=== PATIENT | male | born 1945 | race Caucasian/White ===

== ENCOUNTER → 2021-02-04 08:00 | Outpatient (REF) | payer OTHER, SELFPAY ==
[2021-02-04 08:53] LABS: Hematocrit 46.4 % (40-54); Hemoglobin 14.9 g/dL (13.0-16.5); Mean Corp Hgb Conc 32.1 g/dL (32-36); Mean Corpuscular Hgb 30.7 pg (27.0-32.0); Mean Corpuscular Volume 95.7 fL (80-94); Mean Platelet Vol. 10.6 fl (6.2-12.0); Platelet Count 160 K/mm3 (150-450); RBC Distribution Width CV 13.2 % (11.6-14.6); RBC Distribution Width SD 46.6 fl (35.1-43.9); Red Blood Count 4.85 M/mm3 (4.6-6.2); White Blood Count 5.7 K/mm3 (4.4-11.0)
[2021-02-04 09:35] LABS: AST(SGOT) 22 U/L (15-37); Alanine Aminotransfer ALT/SGPT 29 U/L (16-61); Albumin, Serum 3.9 g/dL (3.2-5.0); Alkaline Phosphatase 75 U/L (45-117); Anion Gap 3 (5-15); BUN 36 mg/dL (7-18); BUN/Creat Ratio 42.9 RATIO (10-20); Calcium,Total 9.1 mg/dL (8.5-10.1); Chloride 105 mmol/L (98-107); Cholesterol 113 mg/dL (200); Creatinine, Serum 0.84 mg/dL (0.70-1.30); EST Glomerular Filtration Rate 95 mL/min (>60); Est Glom Filt Rate - Afr Amer 114 mL/min (>60); Glucose 95 mg/dL (74-106); High Density Lipoprotein 62 mg/dL; Protein, Total 7.9 g/dL (6.4-8.2); Sodium Level 140 mmol/L (136-145); Thyroid Stim Hormone (TSH) 0.88 uIU/mL (0.358-3.74); Triglycerides 46 mg/dL; Very Low Density Lipoprotein 9 mg/dL (5-40)
== END ==
LOC: OLS.DANBUR 08:00
PROVIDERS: Referring Provider Family Medicine; Visit Provider Family Medicine
DX: I48.91 Unspecified atrial fibrillation (principal); I10 Essential (primary) hypertension; E78.5 Hyperlipidemia, unspecified; Z86.73 Personal history of transient ischemic attack (TIA), and cerebral infarction without residual deficits
CPT/HCPCS: 36415; 80053; 80061; 84443; 85027

== ENCOUNTER 2022-11-03 07:27 | Day surgery (SDC) | payer MEDICARE, SELFPAY ==
[2022-11-02 12:20] LABS: Hematocrit 38.4 % (40-54); Hemoglobin 12.3 g/dL (13.0-16.5); Mean Corpuscular Hgb 31.1 pg (27.0-32.0); Mean Platelet Vol. 11.4 fl (6.2-12.0); Platelet Count 136 K/mm3 (150-450); RBC Distribution Width CV 13.3 % (11.6-14.6); Red Blood Count 3.96 M/mm3 (4.6-6.2); White Blood Count 5.1 K/mm3 (4.4-11.0)
[2022-11-02 13:17] LABS: Anion Gap 9 (5-15); BUN 26 mg/dL (7-18); Calcium,Total 9.3 mg/dL (8.5-10.1); Chloride 107 mmol/L (98-107); Creatinine, Serum 0.84 mg/dL (0.70-1.30); EST Glomerular Filtration Rate 94 mL/min (>60); Est Glom Filt Rate - Afr Amer 114 mL/min (>60); Estimated Creatinine Clearance 77.96 ml/min; Glucose 89 mg/dL (74-106); Potassium 3.8 mmol/L (3.5-5.1); Sodium Level 141 mmol/L (136-145)
[2022-11-03] VITALS (13 sets, daily range): BP systolic 129–172; BP diastolic 71–119; PULSE 53–76; RESP 16–18; TEMP 36.2–36.4; O2SAT 92–97; BMI 23.1
[2022-11-03] MEDS: Lactated Ringers 1,000 ML 15 ML IV ×2 (07:45→10:30)
--- NOTE | 2022-11-03 08:34 | EKG12_ITS ---
Test Reason : PRE OP Blood Pressure : / mmHG Vent. Rate : 066 BPM Atrial Rate : 072 BPM P-R Int : 000 ms QRS Dur : 100 ms QT Int : 446 ms P-R-T Axes : 000 118 -55 degrees QTc Int : 467 ms Atrial fibrillation Left posterior fascicular block T wave abnormality, consider inferior ischemia Prolonged QT Abnormal ECG When compared with ECG of 02-NOV-2022 10:56, No significant change was found Confirmed by MARVIN HILL, LIZETTE ([id number]), medical editor FRANCISCO LOPEZ ([id number]) on 11/09/2022 10:53:05 AM Referred By: Dima Altamirano Confirmed By:LIZETTE WONG MD
[2022-11-03] MEDS: Cefazolin 2 GM in 0.9% Normal Saline 100 ML IV (09:23)
--- NOTE | 2022-11-03 09:26 | PCM.HP.BLA ---
History and Physical Date of Admission: 11/03/22 Visit Reasons:?R inguinal hernia Chief Complaint: [place] Director Required: No Is patient in pain?: No Allergies No Known Allergies Allergy (Verified 10/25/22 09:51) Medications apixaban 5 mg tablet (Eliquis) 5 mg PO BID 10/25/22 [History Confirmed 10/25/22] finasteride 5 mg tablet 5 mg PO 10/25/22 [History Confirmed 10/25/22] glycopyrrolate 1 mg tablet 1 mg PO TID 10/25/22 [History Confirmed 10/25/22] lisinopril 2.5 mg tablet 2.5 mg PO 10/25/22 [History Confirmed 10/25/22] metoprolol succinate 50 mg tablet,extended release 24 hr 50 mg PO 10/25/22 [History Confirmed 10/25/22] mirtazapine 15 mg tablet 15 mg PO 10/25/22 [History Confirmed 10/25/22] rosuvastatin 5 mg tablet 5 mg PO 10/25/22 [History Confirmed 10/25/22] trazodone 100 mg tablet 100 mg PO 10/25/22 [History Confirmed 10/25/22] PFSH Medical History?(Updated 10/25/22 @ 12:[address] Dima Altamirano MD) Aortic aneurysm Aphasia CAD (coronary artery disease) CVA (cerebral vascular accident) HTN (hypertension) Weakness Surgical History?(Updated 10/25/22 @ 09:46 by Arcelia Johnson) H/O heart bypass surgery S/P adenoidectomy S/P laparoscopic cholecystectomy S/P tonsillectomy Status post right knee replacement Family History?(Updated 10/25/22 @ 09:48 by Arcelia Johnson) Sister Breast cancerMother CVA (cerebral vascular accident) HypertensionFather Diabetes Heart disease CVA (cerebral vascular accident) Social History?(Updated 10/25/22 @ 09:50 by Arcelia Johnson) Smoking Status:? Former smoker alcohol intake:? current Alcohol type: beer details:? 1/2 beer daily HPI HPI HPI: 77-year-old gentleman who for the past 2 years has been at [facility].? He claims that just within the past very short period of time he noticed a softball sized lump in the right groin.? There is some concerns that it may be affecting his bowel movements.? He has had 2 previous strokes.? Although his mentation appears to be clear he certainly is affected.? He has trouble clearing his airway.? He does need significant amount of assistance.? He is aware of his situation and place.? He is accompanied by the [facility] today.? He has not had any previous right groin surgery.? He has had 2 previous strokes.? He has had coronary bypass surgery.? He is has chronic atrial fibrillation.? He is on chronic Eliquis therapy.? His resides at the same unit but has Alzheimer's and this is far advanced. The patient had a previous laparoscopic cholecystectomy.? He has not any previous groin surgery.? He does have nocturia. He thinks that excessive phlegm production which causes him to cough has accelerated this right inguinal hernia.? Unfortunately he has significant amount of phlegm and sputum and because of a stroke does find it difficult to clear ROS General General: No weight change, appetite, fatigue, colon cancer, breast cancer or weakness HEENT HEENT: Yes difficulty swallowing; No eye injury, eye surgery, swollen glands or hoarseness Endo Endocrine: No thyroid disease, diabetes mellitus, thyroid cancer, Hair loss, heat intolerance or cold intolerance Skin Skin: No rash or changing moles Breast Breast: No left breast lump, right breast lump, nipple discharge, breast pain, abnormal mammogram, abnormal US or breast enlargement Musc Musculoskeletal: Yes arthritis; No back problems, rheumatoid arthritis, gout or joint pain Cardio Cardiovascular: Yes murmur, heart disease, atrial fibrillation, high blood pressure and heart attack; No pacemaker, heart stent, palpitations, shortness of breat with exertion or chest pain Psych Psychiatric: No depression, anxiety or hearing voices Resp Respiratory: No shortness of breath, No sleep apnea, No cough, No COPD, No asthma, No emphysema and No wheezing Gastro Gastrointestinal: No abdominal pain, No nausea or vomiting, No diarrhea, No constipation, No blood in stool, Yes acid reflux, Yes hemorrhoids, No ulcers, No gallbladder problem and No black,tarry stools Bakari Hematologic: Yes blood thinners, No blood disorders, No bleeding, No anemia and No blood clots Neuro Neurologic: No system reviewed and no additional complaints, except as documented, No as per HPI, No abnormal gait, No abnormal hearing, No abnormal movements, No abnormal speech, No behavioral changes, No burning sensations, No confusion, No convulsions, No disequilibrium, No dizziness, No localized weakness, No frequent falls, No headache(s), No lack of coordination, No loss of vision, No memory loss, No numbness, No other visual disturbances, No radicular pain, No restless legs, No sensory deficit, No syncope, No tingling, No tremor(s), No weakness and No other Exam Const General: cooperative Other: He appears to be aware of his situation and place.? He clearly has muscular deficit from his previous stroke. Eyes General: appearance normal, both eyes and all related structures Neck Other: Slender stiffly held Chest Chest palpation & inspection: normal inspection of the chest Resp Effort & Inspection: normal respiratory effort Auscultation: clear to auscultation bilaterally Cardio Other: Irregular GI Inspection: normal to inspection Palpation: soft and no hepatosplenomegaly Other: Patient has an obvious right inguinal hernia.? Testicles are descended.? With some effort I am able to reduce the right inguinal hernia clearly there is bowel involvement.? Upon reduction he is now less tender. Musc Cervical Spine: normal cervical lordosis Skin General: no rashes or lesions noted Neuro General: patient awake and patient oriented x3 Extrem General: no calf tenderness Psych Appearance: grossly normal Assessment and Plan Assessment and Plan (1) Inguinal hernia of right side without obstruction or gangrene: ?Status:?Acute ?Plan: 77-year-old gentleman who is clearly quite complicated. He has respiratory issues not being able to completely clear his phlegm.? He has to use suction.? I recommend contacting Dr. Davion Layton to see if anything additional with suctioning or humidification there are mucolytic's could be done to improve the patient's respiratory status as he clearly is at current ongoing risk for bilateral pulmonary atelectasis and aspiration and periprocedural pneumonia.? I believe that this is the most pressing and concerning issue at this time. I am concerned about the patient's right inguinal hernia there is significant bowel involvement he himself unfortunately has difficult sensing this and certainly could not be relied upon to consistently reduce this area.? I propose for him a open right inguinal herniorrhaphy done under monitored anesthesia care.? I anticipate a Jamil approach with mesh.? Clearly however that even this would come with increased risk. The patient is on chronic Eliquis therapy for atrial fibrillation.? That would need to be held at least 48 hours a preoperatively. He is at increased risk for perioperative urinary obstruction. He will additionally likely require a more enhanced level of postoperative management and care.? Effort needs to be placed into social service and placement as to whether 24/7 nursing care can be provided at his current facility or a additional intermediate type facility would need to be identified. I have great concerns however that due to the patient's disability and deficits that he may not recognize incarceration of this hernia and he would not do well if he presented incarcerated or obstructed as that likely would require general anesthesia further complicating his treatment. He has had an opportunity to ask and have questions answered.? He is interested in pursuing the right inguinal herniorrhaphy if his pulmonary status can be improved and stabilized and if an appropriate place for postoperative care can be arranged. Time spent in direct care managing the patient and organization of planned perioperative management 1 hour. Copy: Dr. Davion Altamirano M.D., F.A.C.S. I have examined the patient and the H&P has been reviewed. There are no clinical changes since date of exam. Dima Altamirano M.D., F.A.C.S.
--- NOTE | 2022-11-03 09:27 | DCINST_ITS ---
Discharge Instructions Procedure General Surgery Diet Discharge Diet: Light diet - advance as tolerated (if you have questions about your diet instructions, please talk to you doctor.) Activity Discharge Activity: May Not Drive (for 3-5 days or while taking narcotic pain medicine.) May shower in (days): 1 Lifting Restrictions: 10 pounds Dressing / Incision Call your doctor if your incision/area has: Continuous Slow Oozing, Sudden Increased Bleeding, Increased Pain/ Swelling, Increased Redness and Foul Smelling Discharge Call your doctor if you observe: Fever of 101 or Higher Suture Line Care: Avoid Pulling/Pushing and Avoid Pinching/Bending Additional Dressing/Incision Instructions:: Change or remove dressing in 4 days. Leave steri-strips in place for 1 week. Metamucil or similar agent 1 tbls daily with fluid or 1 capful miralax daily starting today to avoid constipation May resume Eliquis on Sunday, November 05, 2022 Follow Up Care Please Follow Up With: Dima Altamirano MD When: Call [phone] to make an appointment to be seen in about 10 days. Test Results: Test results from this visit will be discussed in further detail at your follow- up appointment, if applicable. Discharge Plan Admission Primary Reason for Your Visit: Right inguinal hernia Attending Provider: Dima Altamirano Primary Care Provider: Davion Layton Discharge Orders/Prescriptions Prescriptions: Continued finasteride 5 mg tablet 5 mg PO QHS rosuvastatin 5 mg tablet 5 mg PO QHS lisinopril 2.5 mg tablet 2.5 mg PO DAILY mirtazapine [Remeron] 15 mg tablet 15 mg PO QHS Eliquis 5 mg tablet 5 mg PO BID trazodone 100 mg tablet 100 mg PO QHS metoprolol succinate 50 mg tablet extended release 24 hr 50 mg PO DAILY glycopyrrolate 1 mg tablet 1 mg PO TID Referrals / Follow Up: Davion Layton MD [Primary Care Provider] - Disposition Disposition (needs filled in before D/C Order can be placed): Home, Self Care
--- NOTE | 2022-11-03 09:30 | HERN_PTH ---
PATIENT: DIEGO RAMIREZ [place] [facility] [id number] AGE/SX: 77/M ROOM: RE11/03/[address]: Dr. Dima Altamirano MD : 1945 BED: DIS: 11/03/2022 SPEC #: [id number] RECD: 11/03/22 13:40 STATUS: ARABELLA RITESH #: [id number] BRIDGET: 11/03/22 09:[address]: Dima Altamirano DEPT: SURGICAL PATHOLOGY RECD BY: Ayad Estrada ENTERED: 11/03/22 14:05 SP TYPE: Hernia OTHR DR: Dr. Davion Layton MD Tissues: HERNIA Procedures: Surgery Specimen Level II HEADER OPERATION: Inguinal hernia with mesh PRE-OP DIAGNOSIS: Inguinal hernia of right side TISSUE SUBMITTED: Cord lipoma and cremasteric fibers MICROSCOPIC DIAGNOSIS Cord lipoma and cremasteric fibers, excisions: Mature fibrofatty and fibrovascular tissue consistent with lipoma. AM:david 11/06/2022 MICROSCOPIC DESCRIPTION Slides are reviewed. GROSS DESCRIPTION Received in fixative is one container labeled with the patient's name and designated cord lipoma and cremasteric fibers. The specimen consists of three irregular fragments of pink-yellow soft tissue ranging in size from 1 to 5 cm. Serial sections reveal homogenous yellow cut surfaces. The two smaller fragments are submitted in their entirety in cassette 1. [employer] section of the largest fragment is submitted in cassette 2. / AM:david 11/03/2022 TC:1 CPT: 01506
--- NOTE | 2022-11-03 10:44 | OP.PCM_ITS ---
Report of Operation Date of Procedure: 11/03/22 Pre-Operative Diagnosis: Symptomatic right inguinal hernia Post-Operative Diagnosis: Symptomatic indirect right inguinal hernia Surgery/Procedure Performed:: Jamil right inguinal herniorrhaphy Bard mesh preshaped keyhole lot number [id number], reference [id number], expiry date 04/04/2027 Description of Surgical Findings:: Timeout and informed consent was obtained. 77-year-old gentleman was taken to the operating placed on the table underwent monitored anesthesia care. Ancef 2 g were given intravenously. The right groin was sterilely prepped and draped. 1% lidocaine mixed 50-50 with 0.5% Marcaine. A total of 18 cc was used throughout the case. Local was instilled a transverse incision was made in the right groin electrocautery dissection performed hemostasis was intact the ext ernal bleak identified incised along with this fascial nerve identified and protected circumferential control was obtained of the cord structures a sizable indirect sac was identified this was carefully sharply and bluntly dissected free. It was then be able to be completely inverted. The ilioinguinal nerve protected with the cord. The transversalis fascia at the direct area was slightly weak and so I used a 3-0 Ethibond suture from the pubic tubercle to the internal ring reapproximating imbricating the transversalis fascia. I then take a Bard preshaped keyhole mesh placed around the internal ring secured to itself laterally the ileal nerve protected with the cord structures the mesh was then placed was to cover the pubic tubercle direct space and placed the tails which had been trimmed underneath the external oblique the mesh was then meticulously secured in place with multiple 3-0 Ethibond sutures good positioning and securement was achieved the external bleak was approximated laterally with a running 3-0 Vicryl subdermal tissues approximated with interrupted 3-0 Vicryl skin edges proximal and running subicular 4 Monocryl Steri-Strips Telfa OpSite dressings applied sponge and instrument and needle counts were reported to the surgeon to be correct Specimen cord lipoma which was dissected during the procedure and cremasteric fibers. The cord lipoma had been part of the cord dissection and that was simply transected high with electrocautery. Drains none blood loss minimal The patient was taken to the recovery room in satisfied condition without apparent complication Dima Altamirano M.D., F.A.C.S. Surgeon: Dima Altamirano Type of Anesthesia: Local MAC Anesthesiologist: Ronald Raymundo
[2022-11-03] MEDS: Lidocaine 1% (30 ml sdv) 30 ML Vial (10:45)
[2022-11-03] MEDS: Ketorolac 15 MG/ML Vial IV (14:07)
[2022-11-03] MEDS: HYDROcodone Bitartrate/Apap 5/325 Tablet PO (14:23)
== END 2022-11-03 16:49 | disposition home or self-care (01) ==
LOC: SDC 07:28 → AC 07:29
PROVIDERS: PCP Family Medicine; Referring Provider Surgery; Visit Provider Surgery
PROC: (CPT 49505; principal; 2022-11-03 09:15)
DX: K40.90 Unilateral inguinal hernia, without obstruction or gangrene, not specified as recurrent (principal); I48.20 Chronic atrial fibrillation, unspecified; I25.10 Atherosclerotic heart disease of native coronary artery without angina pectoris; I10 Essential (primary) hypertension; R13.10 Dysphagia, unspecified; Z79.01 Long term (current) use of anticoagulants; Z79.899 Other long term (current) drug therapy; Z87.891 Personal history of nicotine dependence; Z86.73 Personal history of transient ischemic attack (TIA), and cerebral infarction without residual deficits; Z96.651 Presence of right artificial knee joint; Z95.1 Presence of aortocoronary bypass graft
CPT/HCPCS: 49505; 00830; 36415; 80048; 85027; 88302; 93005; J7120; C1781; J2405

== ENCOUNTER → 2023-06-08 | Outpatient (REF) | payer MEDICARE, SELFPAY ==
[2023-06-08 10:51] LABS: Hematocrit 36.8 % (40-54); Hemoglobin 11.8 g/dL (13.0-16.5); Mean Corp Hgb Conc 32.1 g/dL (32-36); Mean Corpuscular Hgb 31.9 pg (27.0-32.0); Mean Corpuscular Volume 99.5 fL (80-94); Mean Platelet Vol. 10.7 fl (6.2-12.0); Platelet Count 183 K/mm3 (150-450); RBC Distribution Width CV 13.6 % (11.6-14.6); RBC Distribution Width SD 49.4 fl (35.1-43.9); White Blood Count 4.8 K/mm3 (4.4-11.0)
[2023-06-08 11:25] LABS: AST(SGOT) 13 U/L (15-37); Alanine Aminotransfer ALT/SGPT 14 U/L (16-61); Albumin, Serum 3.2 g/dL (3.2-5.0); Alkaline Phosphatase 75 U/L (45-117); Anion Gap 6 (5-15); BUN 24 mg/dL (7-18); Calcium,Total 8.5 mg/dL (8.5-10.1); Chloride 109 mmol/L (98-107); Creatinine, Serum 0.96 mg/dL (0.70-1.30); EST Glomerular Filtration Rate 80 mL/min (>60); Est Glom Filt Rate - Afr Amer 97 mL/min (>60); Globulin 3.3 g/dL (2.2-4.2); Glucose 112 mg/dL (74-106); Potassium 3.4 mmol/L (3.5-5.1); Protein, Total 6.5 g/dL (6.4-8.2); Sodium Level 144 mmol/L (136-145)
== END ==
LOC: OLS.DANBUR 08:30
PROVIDERS: PCP Family Medicine; Visit Provider Family Medicine
DX: I48.91 Unspecified atrial fibrillation (principal); I10 Essential (primary) hypertension; E78.5 Hyperlipidemia, unspecified
CPT/HCPCS: 36415; 80053; 85027